=== PATIENT | male | born 1960 | race Caucasian/White ===

== ENCOUNTER 2024-04-25 12:56 | Outpatient (AMB) | payer MEDICAID, SELFPAY ==
[2024-04-25 13:07] VITALS: BP 131/73; PULSE 66; RESP 18; TEMP 36.1; O2SAT 98; BMI 38.2
--- NOTE | 2024-04-25 13:07 | PD.ORTHCLVIS ---
Vital signs 04/25/24 13:07 Height 1.61 m Height Method Stated Weight 99.138 kg Weight Measurement Method Standing Scale BMI 38.2 BP 131/73 H Blood Pressure Source Automatic Cuff Blood Pressure Location Left Upper Arm Position Sitting Respiration 18 Pulse 66 Pulse Source Monitor Temp 96.9 F Temp Source Temporal Artery Scan Pulse Oximetry (%) 98 Oxygen Delivery Method Room Air Med/Allergies Allergies & Medications Allergies No Known Allergies Allergy (Verified 04/25/24 13:08) Medication Reconciliation amlodipine 5 mg tablet 5 mg PO QDAY 06/25/23 [History Confirmed 04/25/24] lisinopril 10 mg-hydrochlorothiazide 12.5 mg tablet 1 tab PO QDAY 06/25/23 [History Confirmed 04/25/24] upadacitinib 15 mg tablet,extended release 24 hr (Rinvoq) 15 mg PO QDAY 06/25/23 [History Confirmed 04/25/24] Subjective Visit Visit for: follow up visit and x-rays (RESULTS) Immunization / Flu Flu Vaccine in the Last 12 Months: No Flu Vaccine Exclusion Criteria: Refused by Patient History of Present Illness Chief complaint: FOLLOW UP XRAY RESULTS Shu is a pleasant 62-year-old male who had a left total hip replacement with md 6 months ago. He is doing well. He reports that he had some right knee pain. This knee pain actually improved with the rheumatoid arthritis medications he has been having. He has a lot of pain that starts in his back and radiates down his leg. He has not had an MRI of his back. He has a history of scoliosis. He also reports he never got disability from the last office. We discussed with him that I usually can give about 3 months from the date of surgery. He actually has minimal pain in his hip. He reports his back pain has worsened. We recommend he see a back specialist Personal History Occupation: unemployed Hobbies: none Red flag PMH: smoker (NON-SMOKER ) Pain Pain level (0-10): 8 Pain duration: CONSTANT Pain location: inside (medial) Pain quality: aching Pain timing: night and increases with activity Ambulatory data Ambulatory device: cane Treatments Improvement with previous injections: No Number of Physical Therapy sessions: 12 Improvement with PT: No Improvement with NSAIDS: no Review of Systems Review of Systems: All systems negative unless otherwise noted in HPI. Exam Exam Patient is in no acute distress and is cooperative with the examination today. Patient has a normal mood and affect. Breathing is nonlabored. In no respiratory distress. Bilateral extremities were evaluated and demonstrates sensation intact to light touch. Palpable pedal pulses are present. No significant edema is present. Left hip incision is clean dry intact. He has no pain with logroll. Leg lengths are equal. Right knee is nontender to palpation. Range of motion 0 to 115 degrees. Knee feels stable varus valgus stress as well as AP translation. Spine x-rays demonstrate a scoliosis. Left hip films demonstrate a left total hip replacement in good alignment position. I do not see any evidence of radiolucent lines. The right knee demonstrates valgus arthritis with complete obliteration of the lateral joint space [facility] hip xrays from March at [facility] demonstrate a left total hip replacement in good alignment and position. There are no radiolucement lines. Assessment and Plan Problem List (1) Status post total hip replacement, left: Status: Acute Plan: Patient is a 62-year-old male status post left total hip replacement was doing well. He also has right knee pain and has been doing well since his rheumatoid arthritis injections. He has severe right Knee arthritis treated nonoperatively. His left total hip replacement looks and feels great. We will see him in approximately 2-3 years (2) Bilateral knee pain: Status: Acute Office Procedures GNS Level of Care Nursing/Assessment Patient Status: Established Patient Nursing Assessment/Reassesment: Medication Reconciliation, Update PMH in EMR and Vital Signs Coordination of Care: Complex Care and Chronic Disease 1-5, Education Complex Pt/Fam, Consent,records obtained, informed consent, Results/Orders obtained and Staff clarify orders Established Patient Charge Established Patient Point Assignment: 95 Established Patient Point Charge: EP Level 3 (80-115) Past Medical History Past Medical History Have you ever been diagnosed with any of the following: Cardiology Problems Hypertension: Yes Respiratory Problems Smoking: No Smoking Cessation Counseling: No Smoking Exposure: No Musculoskeletal Problems Rheumatoid Arthritis: Yes
== END 2024-04-25 13:52 | disposition home or self-care (01) ==
LOC: HODSRG 12:56
PROVIDERS: PCP Family Medicine; Referring Provider Family Medicine; Supervising Provider Orthopaedic Surgery Adult Reconstructive Orthopaedic Surgery; Visit Provider Orthopaedic Surgery Adult Reconstructive Orthopaedic Surgery
DX: Z96.642 Presence of left artificial hip joint (principal); M25.561 Pain in right knee; M25.562 Pain in left knee; M06.9 Rheumatoid arthritis, unspecified; I10 Essential (primary) hypertension
CPT/HCPCS: 99213; G0463

== ENCOUNTER 2024-05-12 11:03 | Outpatient (AMB) | payer MEDICAID, SELFPAY ==
--- NOTE | 2024-05-12 11:04 | ORTHONT_ITS ---
Med/Allergies Allergies & Medications Allergies No Known Allergies Allergy (Verified 05/12/24 11:04) Medication Reconciliation amlodipine 5 mg tablet 5 mg PO QDAY 06/25/23 [History Confirmed 05/12/24] lisinopril 10 mg-hydrochlorothiazide 12.5 mg tablet 1 tab PO QDAY 06/25/23 [History Confirmed 05/12/24] upadacitinib 15 mg tablet,extended release 24 hr (Rinvoq) 15 mg PO QDAY 06/25/23 [History Confirmed 05/12/24] Subjective Visit Visit for: follow up visit and hip Immunization / Flu Flu Vaccine in the Last 12 Months: No Flu Vaccine Exclusion Criteria: No Exclusion Criteria History of Present Illness Chief complaint: ER FROM [facility] CALLED REGARDING PATIENTS HIP I Received a call from the emergency room regarding Geremias. I asked to speak with him directly. The nurse was able to pass the phone to him in the emergency room at [facility] which is an hour away from here. He reports that at 3 AM on 05/09/2024 he noticed that there was blood on the side of his thigh. He reports that there was no real pain at all until the incision opened up. He had no preceding pain before this and his hip replacement was 18 months ago which was uncomplicated by any problems until now. He does have a history of rheumatoid arthritis and is on Immunomodulators (Rinvoq) that suppress his immune system. I was sent a picture of his wound by the emergency room doctor which demonstrates a sinus on the middle of his left hip incision. Purulence can be seen. Treatments Improvement with previous injections: No Improvement with PT: No Improvement with NSAIDS: n/a Review of Systems Review of Systems: All systems negative unless otherwise noted in HPI. Assessment and Plan Problem List (1) Left hip prosthetic joint infection: Status: Acute Plan: Patient is a 63-year-old male with a history of rheumatoid arthritis on immunosuppressants and immunomodulators with 1 day of symptoms and now a sinus. 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 He is at the [facility] emergency room and I spoke with the physician in the emergency room. The immunomodulators are likely contributing to the infection. I talked to the patient again today and he reports he had really no symptoms or pain at all up until 3 AM today. We discussed that this is a little unusual but it may be an acute hematogenous infection given the sudden symptoms and how far it is from surgery. He really had no symptoms at all before seeing the drainage 18 months out from surgery today. I discussed with him that there are 2 options. One option is a irrigation and debridement and implant retention with chronic suppression. I discussed with him that this may be a problem because he is on immunomodulators for his severe rheumatoid arthritis. I also discussed with him that a sinus tract is a contraindication for a DAIR procedure. I discussed with him that the alternative is more morbid and requires removal of the implants. Since I did his procedure, I have moved my practice to [facility] and I let him know that he will need a larger procedure than what I am comfortable doing at this hospital. We do not have infectious disease currently at this hospital. Furthermore, this may be a challenge as I am having difficulty doing my elective cases here right now given that the hospital is short staffed. In addition, I discussed that the second option is a 1 staged or a two-stage exchange arthroplasty which is a more aggressive procedure which would provide him with a higher infection eradication rate but with more morbidity. I explained this to the patient. The patient has a good understanding that this procedure is quite large. I also discussed with the patient that [place] and a revision hip replacement may be too large of the procedure for the current hospital which has never done a hip revision in the past. I actually did call the hospital charge nurse for the operating room and he stated that they would not recommend that I do this case given that they have never done one before and because they do not have ther equipment or staffing for a large procedure of this magnitude. In light of this, I discussed with the patient that he may benefit from going to a tertiary care setting who can more routinely perform a two-stage exchange with the a multidisciplinary team including infectious disease. The patient is also quite complex given his rheumatoid arthritis history and immunomodulators. The patient understands and I discussed with him that I am happy to see him for follow-up. Office Procedures GNS Level of Care Nursing/Assessment Patient Status: Established Patient Nursing Assessment/Reassesment: Medication Reconciliation, Update PMH in EMR and Vital Signs Coordination of Care: Complex Care and Chronic Disease 1-5, Education Complex Pt/Fam, Consent,records obtained, informed consent, Results/Orders obtained and Staff clarify orders Established Patient Charge Established Patient Point Assignment: 95 Telehealth Telemed Phone/Video with patient at home & Dr,PA,OIL DELIVERER: Yes
== END 2024-05-12 11:03 | disposition home or self-care (01) ==
LOC: HODSRG 11:03
PROVIDERS: PCP Family Medicine; Referring Provider Family Medicine; Supervising Provider Orthopaedic Surgery Adult Reconstructive Orthopaedic Surgery; Visit Provider Orthopaedic Surgery Adult Reconstructive Orthopaedic Surgery
DX: T84.52XA Infection and inflammatory reaction due to internal left hip prosthesis, initial encounter (principal); X58.XXXA Exposure to other specified factors, initial encounter
CPT/HCPCS: 99212; G0463

== ENCOUNTER 2024-06-09 13:16 | Outpatient (AMB) | payer MEDICAID, SELFPAY ==
--- NOTE | 2024-06-09 13:42 | ORTHONT_ITS ---
Vital signs 06/09/24 13:48 Height 1.61 m Height Method Stated Weight 97.069 kg Weight Measurement Method Standing Scale BMI 37.4 BP 108/71 Blood Pressure Source Automatic Cuff Blood Pressure Location Left Upper Arm Position Sitting Respiration 19 Pulse 62 Pulse Source Monitor Temp 96.8 F Temp Source Temporal Artery Scan Pulse Oximetry (%) 98 Oxygen Delivery Method Room Air Med/Allergies Allergies & Medications Allergies No Known Allergies Allergy (Verified 06/09/24 13:51) Medication Reconciliation amlodipine 5 mg tablet 5 mg PO QDAY 06/25/23 [History Confirmed 06/09/24] lisinopril 10 mg-hydrochlorothiazide 12.5 mg tablet 1 tab PO QDAY 06/25/23 [History Confirmed 06/09/24] upadacitinib 15 mg tablet,extended release 24 hr (Rinvoq) 15 mg PO QDAY 06/25/23 [History Confirmed 06/09/24] Exam Exam Patient is in no acute distress and is cooperative with the examination today. Breathing is nonlabored. In no respiratory distress. Patient has no paraspinal tenderness. Spinal deformity cannot be appreciated. The gait of the patient is nonantalgic Bilateral extremities were evaluated and demonstrates sensation intact to light touch. Palpable pedal pulses are present. No significant edema is present. Bilateral knees were examined and the patient has full strength and range of motion.. The right hip was examined. Patient was able to flex to 90 degrees, adduct to 30 degrees, abduct to 40 degrees, internally rotate to 20 degrees, and externally rotate to 20 degrees. Patient has a negative logroll. Stinchfield is negative. The patient is nontender diffusely to touch. The left hip was examined. The left hip incision is clean dry intact. There are Steri-Strips on. There is no active drainage and the dressing from yesterday is very dry. There is 1 spot where it has not completely healed yet. This is on the distal aspect of the spine there is a 1 cm area that is approximated but Has not healed completely. Assessment and Plan Problem List (1) Left hip prosthetic joint infection: Status: Acute Plan: Patient is a 63-year-old male with a history of rheumatoid arthritis on immunosuppressants Who developed a left hip PJI after being fine for 18 months. She was subsequently transferred to [facility] where they did a two-stage exchange arthroplasty and put him on vancomycin via PICC. He is at a intermediate facility currently. His dressing feels pretty good. There is minimal drainage I recommended continued local wound care for now. It is not healed completely and 1 area distally with a 1 cm area. Plan - Continue vancomycin - Continue local wound care and dressing changes. - The patient is at a intermediate facility 1-1/2 hours away from here. He has my cell phone number at will text me up contact me should the dressing change. The wound be concerning - We will see him back in approximately 2 to 3 weeks Office Procedures GNS Level of Care Nursing/Assessment Patient Status: Established Patient Nursing Assessment/Reassesment: Medication Reconciliation, Update PMH in EMR and Vital Signs Coordination of Care: Complex Care and Chronic Disease 1-5, Education Complex Pt/Fam, Consent,records obtained, informed consent, Results/Orders obtained and Staff clarify orders Miscellaneous Interventions: Dressing placement or removal Established Patient Charge Established Patient Point Assignment: 115 Established Patient Point Charge: Level 3 (80-115) MA Intake Visit Data Collection New Patient or Established: Established Patient (seen at [facility] within 3 years) Reason for Visit:: WOUND F/U HIP Seen by Clinical Staff ONLY (RN/MA): No Medical Transport Specialist Required: No PCP or OBGYN visit in last 3 months: Yes Hx Now: No Do You Feel Safe at Home: Yes Authorities Contacted: N/A Questionairres Past Medical History Past Medical History Have you ever been diagnosed with any of the following: Cardiology Problems Hypertension: Yes Respiratory Problems Smoking: No Smoking Cessation Counseling: No Smoking Exposure: No Musculoskeletal Problems Rheumatoid Arthritis: Yes Subjective Visit Visit for: follow up visit Immunization / Flu Flu Vaccine in the Last 12 Months: No Flu Vaccine Exclusion Criteria: No Exclusion Criteria History of Present Illness Chief complaint: Left hip follow-up Patient is a 63-year-old male with left hip rheumatoid arthritis on Rinvoq previously. He was doing well from his left total hip replacement until approximately 1 month ago where he woke up suddenly with a draining wound. There was a sinus tract. He went to [facility] emergency the room and was stuck there for quite a while. He ultimately was transferred to [facility] where they did a two-stage exchange arthroplasty. He is on vancomycin. He is currently at a intermediate facility where they are getting weekly labs. They removed his stitches a week ago and there was scant drainage. His dressing was last changed 24 hours ago and that there is no current drainage on the dressing. Pain Pain level (0-10): 2 Pain duration: ON AND OFF Pain location: inside (medial) Pain quality: aching Associated signs & symptoms: none Ambulatory data Ambulatory device: other (specify) (WHEEL CHAIR) Treatments Improvement with previous injections: No Improvement with PT: No Improvement with NSAIDS: no Review of Systems Review of Systems: All systems negative unless otherwise noted in HPI.
[2024-06-09 13:48] VITALS: BP 108/71; PULSE 62; RESP 19; TEMP 36; O2SAT 98; BMI 37.4
== END 2024-06-09 13:40 | disposition home or self-care (01) ==
LOC: HODSRG 13:16
PROVIDERS: PCP Family Medicine; Referring Provider Family Medicine; Supervising Provider Orthopaedic Surgery Adult Reconstructive Orthopaedic Surgery; Visit Provider Orthopaedic Surgery Adult Reconstructive Orthopaedic Surgery
DX: T84.52XD Infection and inflammatory reaction due to internal left hip prosthesis, subsequent encounter (principal); I10 Essential (primary) hypertension; M06.9 Rheumatoid arthritis, unspecified
CPT/HCPCS: 99213; G0463

== ENCOUNTER 2024-06-27 11:40 | Outpatient (AMB) | payer MEDICAID, SELFPAY ==
--- NOTE | 2024-06-27 11:36 | ORTHONT_ITS ---
Med/Allergies Allergies & Medications Allergies No Known Allergies Allergy (Verified 06/27/24 11:36) Medication Reconciliation amlodipine 5 mg tablet 5 mg PO QDAY 06/25/23 [History Confirmed 06/27/24] lisinopril 10 mg-hydrochlorothiazide 12.5 mg tablet 1 tab PO QDAY 06/25/23 [History Confirmed 06/27/24] upadacitinib 15 mg tablet,extended release 24 hr (Rinvoq) 15 mg PO QDAY 06/25/23 [History Confirmed 06/27/24] Subjective Visit Visit for: follow up visit Immunization / Flu Flu Vaccine in the Last 12 Months: No Flu Vaccine Exclusion Criteria: No Exclusion Criteria History of Present Illness Chief complaint: telemed visit I spoke to Shu on the phone. He just finished his IV antibiotics this week. He is in contact with [facility] for reimplantation. The wound is healed well and he reports that there is no drainage at all. I will talk to [facility] to see when they will can reimplant him. Pain Pain level (0-10): 3 Ambulatory data Ambulatory device: walker and other (specify) Treatments Improvement with previous injections: No Improvement with PT: No Improvement with NSAIDS: no Review of Systems Review of Systems: All systems negative unless otherwise noted in HPI. Assessment and Plan Problem List (1) Left hip prosthetic joint infection: Status: Acute Plan: Patient is a 63-year-old male with a history of rheumatoid arthritis on immunosuppressants Who developed a left hip PJI after being fine for 18 months. She was subsequently transferred to [facility] where they did a two-stage exchange arthroplasty and put him on vancomycin via PICC. He is at a care home facility currently And is going home today. He is to be reimplanted soon at [facility]. Office Procedures GNS Level of Care Nursing/Assessment Patient Status: Established Patient Nursing Assessment/Reassesment: Medication Reconciliation, Update PMH in EMR and Vital Signs Coordination of Care: Complex Care and Chronic Disease 1-5, Education Complex Pt/Fam, Consent,records obtained, informed consent, Results/Orders obtained and Staff clarify orders Established Patient Charge Established Patient Point Assignment: 95 Telehealth Telemed Phone/Video with patient at home & Dr,PA,CARAMEL CANDY MAKER: Yes
== END 2024-06-27 11:42 | disposition home or self-care (01) ==
LOC: HODSRG 11:40
PROVIDERS: PCP Family Medicine; Referring Provider Family Medicine; Supervising Provider Orthopaedic Surgery Adult Reconstructive Orthopaedic Surgery; Visit Provider Orthopaedic Surgery Adult Reconstructive Orthopaedic Surgery
DX: T84.52XD Infection and inflammatory reaction due to internal left hip prosthesis, subsequent encounter (principal); Y84.9 Medical procedure, unspecified as the cause of abnormal reaction of the patient, or of later complication, without mention of misadventure at the time of the procedure
CPT/HCPCS: 99212; G0463

== ENCOUNTER 2024-06-30 13:00 | Outpatient (AMB) | payer MEDICAID, SELFPAY ==
[2024-06-30 13:21] VITALS: BP 137/80; PULSE 75; RESP 18; TEMP 36.6; O2SAT 98; BMI 37.6
--- NOTE | 2024-06-30 13:21 | PD.ORTHCLVIS ---
Vital signs 06/30/24 13:21 Height 1.61 m Height Method Stated Weight 97.522 kg Weight Measurement Method Standing Scale BMI 37.6 BP 137/80 H Blood Pressure Source Automatic Cuff Blood Pressure Location Left Upper Arm Position Sitting Respiration 18 Pulse 75 Pulse Source Monitor Temp 97.8 F Temp Source Temporal Artery Scan Pulse Oximetry (%) 98 Oxygen Delivery Method Room Air Med/Allergies Allergies & Medications Allergies No Known Allergies Allergy (Verified 06/30/24 13:23) Medication Reconciliation amlodipine 5 mg tablet 5 mg PO QDAY 06/25/23 [History Confirmed 06/30/24] lisinopril 10 mg-hydrochlorothiazide 12.5 mg tablet 1 tab PO QDAY 06/25/23 [History Confirmed 06/30/24] upadacitinib 15 mg tablet,extended release 24 hr (Rinvoq) 15 mg PO QDAY 06/25/23 [History Confirmed 06/30/24] Exam Exam Patient is in no acute distress and is cooperative with the examination today. Breathing is nonlabored. In no respiratory distress. Patient has no paraspinal tenderness. Spinal deformity cannot be appreciated. The gait of the patient is nonantalgic Bilateral extremities were evaluated and demonstrates sensation intact to light touch. Palpable pedal pulses are present. No significant edema is present. Bilateral knees were examined and the patient has full strength and range of motion.. The right hip was examined. Patient was able to flex to 90 degrees, adduct to 30 degrees, abduct to 40 degrees, internally rotate to 20 degrees, and externally rotate to 20 degrees. Patient has a negative logroll. Stinchfield is negative. The patient is nontender diffusely to touch. The left hip was examined. The left hip incision is clean dry intact. it has healed Assessment and Plan Problem List (1) Left hip prosthetic joint infection: Status: Acute Plan: Patient is a 63-year-old male with a history of rheumatoid arthritis on immunosuppressants Who developed a left hip PJI after being fine for 18 months. He Underwent a hip spacer placement at [facility] about 6 weeks ago. He is now off antibiotics. He is not on any oral medication as well for pain or for his infection. The fellow from [facility] contacted me and let them know that the patient is on the schedule at [facility] for reimplantation Office Procedures GNS Level of Care Nursing/Assessment Patient Status: Established Patient Nursing Assessment/Reassesment: Medication Reconciliation, Update PMH in EMR and Vital Signs Coordination of Care: Complex Care and Chronic Disease 1-5, Education Complex Pt/Fam, Consent,records obtained, informed consent and Staff clarify orders Miscellaneous Interventions: Wound Cleaning/Preperation Established Patient Charge Established Patient Point Assignment: 115 Established Patient Point Charge: EP Level 3 (80-115) MA Intake Visit Data Collection New Patient or Established: Established Patient (seen at [facility] within 3 years) Reason for Visit:: HIP WOUND FOLLOW UP Seen by Clinical Staff ONLY (RN/MA): No Pediatric Dietician Required: No PCP or OBGYN visit in last 3 months: Yes Hx Now: No Do You Feel Safe at Home: Yes Authorities Contacted: N/A Questionairres Past Medical History Past Medical History Have you ever been diagnosed with any of the following: Cardiology Problems Hypertension: Yes Respiratory Problems Smoking: No Smoking Cessation Counseling: No Smoking Exposure: No Musculoskeletal Problems Rheumatoid Arthritis: Yes Subjective Visit Visit for: follow up visit and hip Immunization / Flu Flu Vaccine in the Last 12 Months: No Flu Vaccine Exclusion Criteria: No Exclusion Criteria History of Present Illness Chief complaint: Left hip follow-up Patient is a 63-year-old male with left hip rheumatoid arthritis on Rinvoq previously. He was doing well from his left total hip replacement until approximately 1 month ago where he woke up suddenly with a draining wound. There was a sinus tract. He went to [place] [facility] emergency the room and was stuck there for quite a while. He ultimately was transferred to [facility] where they did a two-stage exchange arthroplasty. He finished his antibiotics on 06/26/2024. He is on the clinic schedule at [facility] for reimplantation. Pain Pain level (0-10): 2 Pain duration: ON AND OFF Pain location: other (specify) Pain quality: aching Associated signs & symptoms: none Ambulatory data Ambulatory device: other (specify) (WHEEL CHAIR) Treatments Improvement with previous injections: No Improvement with PT: No Improvement with NSAIDS: no Review of Systems Review of Systems: All systems negative unless otherwise noted in HPI.
== END 2024-06-30 13:44 | disposition home or self-care (01) ==
LOC: HODSRG 13:00
PROVIDERS: PCP Family Medicine; Referring Provider Family Medicine; Supervising Provider Orthopaedic Surgery Adult Reconstructive Orthopaedic Surgery; Visit Provider Orthopaedic Surgery Adult Reconstructive Orthopaedic Surgery
DX: T84.52XD Infection and inflammatory reaction due to internal left hip prosthesis, subsequent encounter (principal); Y84.9 Medical procedure, unspecified as the cause of abnormal reaction of the patient, or of later complication, without mention of misadventure at the time of the procedure
CPT/HCPCS: 99213; G0463

== ENCOUNTER 2024-09-07 14:21 | Outpatient (AMB) | payer MEDICAID, SELFPAY ==
[2024-09-07 14:35] VITALS: BP 130/74; PULSE 56; RESP 18; TEMP 36.2; O2SAT 98; BMI 40.2
--- NOTE | 2024-09-07 14:35 | PD.ORTHCLVIS ---
Vital signs 09/07/24 14:35 Height 1.61 m Height Method Stated Weight 104.326 kg Weight Measurement Method Standing Scale BMI 40.2 BP 130/74 Blood Pressure Source Automatic Cuff Blood Pressure Location Right Upper Arm Position Sitting Respiration 18 Pulse 56 L Pulse Source Monitor Temp 97.1 F Temp Source Temporal Artery Scan Pulse Oximetry (%) 98 Oxygen Delivery Method Room Air Med/Allergies Allergies & Medications Allergies No Known Allergies Allergy (Verified 09/07/24 14:36) Medication Reconciliation amlodipine 5 mg tablet 5 mg PO QDAY 06/25/23 [History Confirmed 09/07/24] lisinopril 10 mg-hydrochlorothiazide 12.5 mg tablet 1 tab PO QDAY 06/25/23 [History Confirmed 09/07/24] upadacitinib 15 mg tablet,extended release 24 hr (Rinvoq) 15 mg PO QDAY 06/25/23 [History Confirmed 09/07/24] Exam Exam Patient is in no acute distress and is cooperative with the examination today. Breathing is nonlabored. In no respiratory distress. Patient has no paraspinal tenderness. Spinal deformity cannot be appreciated. The gait of the patient is nonantalgic Bilateral extremities were evaluated and demonstrates sensation intact to light touch. Palpable pedal pulses are present. No significant edema is present. Bilateral knees were examined and the patient has full strength and range of motion.. The right hip was examined. Patient was able to flex to 90 degrees, adduct to 30 degrees, abduct to 40 degrees, internally rotate to 20 degrees, and externally rotate to 20 degrees. Patient has a negative logroll. Stinchfield is negative. The patient is nontender diffusely to touch. The left hip was examined. The left hip incision is clean dry intact. Assessment and Plan Problem List (1) Left hip prosthetic joint infection: Status: Acute Plan: Patient is a 63-year-old male with a history of rheumatoid arthritis on immunosuppressants Who developed a left hip PJI after being fine for 18 months. He Underwent a hip spacer placement at [facility] and was recently reimplanted 3 weeks ago and is still on antibiotics. He is seeing [facility] next week and is here for a wound check. Office Procedures GNS Level of Care Nursing/Assessment Patient Status: Established Patient Nursing Assessment/Reassesment: Medication Reconciliation, Update PMH in EMR and Vital Signs Coordination of Care: Complex Care and Chronic Disease 1-5, Consent,records obtained, informed consent, Education Simp Pt/Fam, Results/Orders obtained and Staff clarify orders Established Patient Charge Established Patient Point Assignment: 90 Established Patient Point Charge: EP Level 3 (80-115) MA Intake Visit Data Collection New Patient or Established: Established Patient (seen at [facility] within 3 years) Reason for Visit:: LEFT HIP FOLLOW UP Seen by Clinical Staff ONLY (RN/MA): No Plant Protection Supervisor Required: No PCP or OBGYN visit in last 3 months: Yes Hx Now: No Do You Feel Safe at Home: Yes Authorities Contacted: N/A Questionairres Past Medical History Past Medical History Have you ever been diagnosed with any of the following: Cardiology Problems Hypertension: Yes Respiratory Problems Smoking: No Smoking Cessation Counseling: No Smoking Exposure: No Musculoskeletal Problems Rheumatoid Arthritis: Yes Subjective Visit Visit for: follow up visit and hip (LEFT HIP) Immunization / Flu Flu Vaccine in the Last 12 Months: No Flu Vaccine Exclusion Criteria: Refused by Patient History of Present Illness Chief complaint: Left hip follow-up Patient is a 63-year-old male with left hip rheumatoid arthritis on Rinvoq previously. He was doing well from his left total hip replacement until he developed a sinus approximately 1.5 years ago. He underwent two stage exchange arthroplasty and recently was reimplanted 3 weeks ago. Personal History Red flag PMH: none Pain Pain level (0-10): 5 Pain duration: 1 DAY Pain location: groin Pain quality: sharp Pain timing: increases with activity Associated signs & symptoms: none Ambulatory data Ambulatory device: other (specify) (WHEELCHAIR) Walking distance (minutes): 0 Treatments Number of previous injections: 0 Improvement with previous injections: No Number of Physical Therapy sessions: 0 Improvement with PT: No Improvement with NSAIDS: n/a Review of Systems Review of Systems: All systems negative unless otherwise noted in HPI.
== END 2024-09-07 14:56 | disposition home or self-care (01) ==
LOC: HODSRG 14:21
PROVIDERS: PCP Family Medicine; Referring Provider Family Medicine; Supervising Provider Orthopaedic Surgery Adult Reconstructive Orthopaedic Surgery; Visit Provider Orthopaedic Surgery Adult Reconstructive Orthopaedic Surgery
DX: T84.52XD Infection and inflammatory reaction due to internal left hip prosthesis, subsequent encounter (principal); M06.852 Other specified rheumatoid arthritis, left hip; I10 Essential (primary) hypertension
CPT/HCPCS: 99213; G0463